=== PATIENT | male | born 1980 | race Caucasian/White ===

== ENCOUNTER → 2016-06-27 | Outpatient (REF) | payer OTHER | LOC: M SFHCLERA 16:32 | PROVIDERS: ATTEND Nurse Practitioner Family | DX: J03.90 Acute tonsillitis, unspecified (principal) ==

== ENCOUNTER 2017-03-10 18:16 | Emergency (ER) | payer OTHER, SELFPAY ==
[~2017-03-10] VITALS: Ht 182.9 cm; Wt 97.7 kg
[2017-03-10] MEDS ORDERED: IBUP-1022 PO (18:28)
[2017-03-10] MEDS ORDERED: AUGM875T28 PO (21:37)
[2017-03-10] MEDS ORDERED: NORCOTAB PO (21:37)
[2017-03-10] MEDS ORDERED: AUGMENTIN 875 MG TAB PO ONE (21:45)
[2017-03-10] MEDS ORDERED: NORCO 5/325MG TABLET (BULK FOR ED) PO ONE (21:45)
[2017-03-10 21:56] VITALS: BP 153/98
== END 2017-03-10 21:57 | disposition home or self-care (01) ==
LOC: M ED 18:16
DX: K04.7 Periapical abscess without sinus (principal); Z87.891 Personal history of nicotine dependence

== ENCOUNTER → 2018-07-28 | Outpatient (CLI) | payer SELFPAY ==
[~2018-07-28] MED LIST: AUGM875T28 PO; HYDR-3715 PO; IBUP-1022 PO
--- NOTE | 2018-07-28 17:30 | REP ---
REASON: Cough and shoulder pain. PRIORS: None. FINDINGS: The superior mediastinal structures are midline. The cardiac silhouette is unremarkable in size, shape, and position. The diaphragmatic surfaces of the lungs are regular, and the costophrenic angles are clear. The pulmonary felix are clear. The imaged osseous structures are intact. IMPRESSION: There is no acute cardiopulmonary disease. Electronically Signed by Edwar Pizarro DO 07/29/2018 11:55 A
== END ==
LOC: M LRY 15:30
PROVIDERS: ATTEND Physician Assistant
DX: R05 Cough (principal)